=== PATIENT | male | born 1945 | race Caucasian/White ===

== ENCOUNTER 2019-06-03 15:00 | Outpatient (RCR) | payer MEDICARE, OTHER, SELFPAY ==
[2019-04-13 09:15] VITALS: BP 144/62; PULSE 64; RESP 14; O2SAT 98
[2019-05-13 17:23] LABS: Glucose Point of Care 46 (65-105)
[2019-05-13 17:23] LABS: Glucose Point of Care 60 (65-105)
[2019-05-13 17:23] LABS: Glucose Point of Care 86 (65-105)
[2019-05-13 17:23] LABS: Glucose Point of Care 58 (65-105)
--- NOTE | 2019-06-09 09:44 | PCCPR ---
Program is temporarily suspended due to COVID outbreak.
--- NOTE | 2019-06-23 09:55 | PCCPR ---
Spoke with Jamaal this morning. States he is doing well. He is doing some weight training at home and walking outside some. States he has a TM at home but hasn't used it yet. Encouraged him to try to get in his 30 min of aerobic activity at least 5 days/week. Will follow up with patient next week.
--- NOTE | 2019-06-30 11:12 | PCCPR ---
Check in completed with patient. Continues to exercise. No questions or concerns at this time. Will continue to follow weekly.
--- NOTE | 2019-07-07 13:45 | PCCPR ---
Weekly update call-No questions or concerns at this time.
--- NOTE | 2019-07-14 13:55 | PCCPR ---
Weekly update call-informed patient of continued closure through the month of July due to the extension of the [facility] in place order. Asked patient if he was interested in discharging as he was close to finishing prior to the closure of the program. He states he would like to come back and finish his sessions if able.
--- NOTE | 2019-07-29 12:59 | PCCPR ---
Starting Bi-Weekly Calls. Spoke with patient. No questions or concerns at this time.
--- NOTE | 2019-08-12 14:04 | PCCPR ---
Called Jamaal bowers to leave message.
--- NOTE | 2019-10-06 11:43 | PCCPR ---
Message left for Jamaal asking he give us a call with his plan to continue with Cardiac rehab. He has attended some sessions not regularly with several no call no shows.
== END 2019-06-03 23:59 | disposition home or self-care (01) ==
LOC: ANHCPREHAB 15:00
DX: Z95.5 Presence of coronary angioplasty implant and graft (principal); I25.2 Old myocardial infarction
CPT/HCPCS: 93798

== ENCOUNTER 2019-09-29 15:00 | Outpatient (RCR) | payer MEDICARE, OTHER, SELFPAY | END 2019-10-07 18:17 | disposition home or self-care (01) | LOC: ANHCPREHAB 15:00 | PROVIDERS: PCP Internal Medicine Endocrinology, Diabetes & Metabolism; Visit Provider Internal Medicine Cardiovascular Disease | DX: I25.2 Old myocardial infarction (principal); Z95.5 Presence of coronary angioplasty implant and graft | CPT/HCPCS: 93798 ==